=== PATIENT | male | born 1990 | race Caucasian/White ===

== ENCOUNTER 2017-06-27 03:41 | Emergency (ER) | payer OTHER ==
[~2017-06-27] VITALS: Ht 175.3 cm; Wt 74.8 kg
== END 2017-06-27 04:30 | disposition home or self-care (01) ==
LOC: ER 03:41
DX: T17.228A Food in pharynx causing other injury, initial encounter (principal); X58.XXXA Exposure to other specified factors, initial encounter; Y93.89 Activity, other specified; Y92.89 Other specified places as the place of occurrence of the external cause; Y99.8 Other external cause status